=== PATIENT | female | born 1960 | race Caucasian/White ===

== ENCOUNTER → 2017-04-06 | Outpatient (REF) ==
[2012-01-08 10:19] VITALS: BP 136/91
[~2017-04-06] MED LIST: NO HOME MEDICATIONS
== END ==
LOC: LAB 13:58
DX: E83.52 Hypercalcemia (principal); E11.9 Type 2 diabetes mellitus without complications

== ENCOUNTER → 2017-04-20 | Outpatient (CLI) | payer BC ==
[2012-01-08 10:19] VITALS: BP 136/91
== END ==
LOC: RAD 14:41
DX: M54.2 Cervicalgia (principal)

== ENCOUNTER → 2017-04-20 | Outpatient (REF) ==
[2012-01-08 10:19] VITALS: BP 136/91
== END ==
LOC: LAB 14:40 → EDSTATUS 14:43
DX: Z01.419 Encounter for gynecological examination (general) (routine) without abnormal findings (principal); E11.9 Type 2 diabetes mellitus without complications; E78.2 Mixed hyperlipidemia; K21.9 Gastro-esophageal reflux disease without esophagitis

== ENCOUNTER → 2017-09-10 | Outpatient (CLI) | payer BC ==
[2012-01-08 10:19] VITALS: BP 136/91
== END ==
LOC: LAB 13:35
DX: E21.0 Primary hyperparathyroidism (principal)

== ENCOUNTER → 2018-03-13 | Outpatient (CLI) | payer BC ==
[2012-01-08 10:19] VITALS: BP 136/91
[2018-03-13 08:18] LABS: EOS # 0.3 (0.04-0.40); HEMATOCRIT 45.5 % (37.0-47.0); MEAN CELL VOLUME 89 fl (78-100); MEAN CORPUSCULAR HEMOGLOBIN 29 pg (27-31); MEAN CORPUSCULAR HGB CONC 33 g/dL (33-37); MEAN PLATELET VOLUME 9.2 fl (7.4-10.4); MONO # 0.5 (0.20-0.80); NEU # 6.1 (1.40-6.50); PLATELET COUNT 317 K/mm3 (130-400); RED CELL DISTRIBUTION WIDTH 14.4 % (11.5-14.5)
== END ==
LOC: LAB 07:57
PROVIDERS: Nurse Practitioner Family
DX: Z13.220 Encounter for screening for lipoid disorders (principal); E11.65 Type 2 diabetes mellitus with hyperglycemia; K21.9 Gastro-esophageal reflux disease without esophagitis

== ENCOUNTER → 2018-04-05 | Outpatient (CLI) | payer BC ==
[~2018-04-05] VITALS: Ht 160 cm; Wt 97.7 kg
[~2018-04-05] MED LIST changes: +DIABETA 5MG5 MG/TAB PO; +ESTRACE2 M1 PO; +GLUCOPHAGE PO; +LISINOPRIL10 MG PO; +OMEPRAZOLE D/R20 MG PO; +PIOGLITAZONE HC15 MG PO; +PRAVASTATIN SOD40 MG PO; +SERTRALINE HYD100 MG PO; +ZOLOFT25 M1 PO
[2018-04-05 09:50] VITALS: BP 117/78
== END ==
LOC: AMSURD 08:38
DX: M19.90 Unspecified osteoarthritis, unspecified site (principal)

== ENCOUNTER 2019-03-03 21:39 | Inpatient (IN) | payer SELFPAY ==
[~2019-03-03] VITALS: Ht 162.6 cm; Wt 90.8 kg
[~2019-03-03 21:39] MED LIST changes: -VIBRAMYCIN HYC100 MG PO
[2019-03-03 22:18] VITALS: BP 87/47
[2019-03-03 22:27] VITALS: BP 87/47
[2019-03-03 23:30] VITALS: BP 86/51
[2019-03-03 23:37] LABS: POTASSIUM 3.3 mmol/L (3.5-5.1)
[2019-03-03 23:38] LABS: CALCIUM 7.8 mg/dL (8.3-10.5)
[2019-03-04 03:50] VITALS: BP 92/60
[2019-03-04 06:31] VITALS: BP 107/70
[2019-03-04 06:48] LABS: HEMATOCRIT 39.6 % (37.0-47.0); HEMOGLOBIN 13.1 g/dL (12.5-16.0); MEAN CELL VOLUME 86 fl (78-100); MEAN CORPUSCULAR HEMOGLOBIN 29 pg (27-31); MEAN CORPUSCULAR HGB CONC 33 g/dL (33-37); MEAN PLATELET VOLUME 11.2 fl (7.4-10.4); PLATELET COUNT 72 K/mm3 (130-400); RED BLOOD COUNT 4.59 M/mm3 (4.10-5.30); RED CELL DISTRIBUTION WIDTH 13.5 % (11.5-14.5)
[2019-03-04 07:15] LABS: CALCIUM 7.8 mg/dL (8.3-10.5); POTASSIUM 3.5 mmol/L (3.5-5.1)
[2019-03-04 07:24] LABS: WHITE BLOOD COUNT 1.9 K/mm3 (4.8-10.8)
[2019-03-04 08:07] LABS: BAND 29 % (0-10); LYMPHOCYTE 18 % (20-51); NEUTROPHILS 40 % (42-75)
[2019-03-04 08:08] LABS: MONOCYTE 13 % (3-10)
[2019-03-04 11:14] VITALS: BP 95/61
[2019-03-04 12:11] LABS: TOTAL PROTEIN 5.4 g/dL (6.4-8.3)
[2019-03-04 12:13] LABS: TOTAL BILIRUBIN 0.7 mg/dL (0.2-1.2)
[2019-03-04 12:16] LABS: DIRECT BILIRUBIN 0.3 mg/dL (0.0-0.5)
[2019-03-04 14:44] VITALS: BP 92/57
[2019-03-04 18:19] VITALS: BP 123/76
[2019-03-04 22:20] VITALS: BP 134/80
[2019-03-05 02:43] VITALS: BP 99/59
[2019-03-05 06:40] VITALS: BP 102/60
[2019-03-05 09:02] LABS: POTASSIUM 3.5 mmol/L (3.5-5.1)
[2019-03-05 09:05] LABS: TOTAL PROTEIN 5.5 g/dL (6.4-8.3)
[2019-03-05 09:06] LABS: TOTAL BILIRUBIN 0.7 mg/dL (0.2-1.2)
[2019-03-05 10:04] LABS: HEMATOCRIT 38.2 % (37.0-47.0); HEMOGLOBIN 12.8 g/dL (12.5-16.0); MEAN CELL VOLUME 86 fl (78-100); MEAN CORPUSCULAR HEMOGLOBIN 29 pg (27-31); MEAN CORPUSCULAR HGB CONC 34 g/dL (33-37); MEAN PLATELET VOLUME 11.4 fl (7.4-10.4); PLATELET COUNT 68 K/mm3 (130-400); RED BLOOD COUNT 4.47 M/mm3 (4.10-5.30); RED CELL DISTRIBUTION WIDTH 13.4 % (11.5-14.5); WHITE BLOOD COUNT 3.1 K/mm3 (4.8-10.8)
[2019-03-05 11:17] VITALS: BP 110/72
[2019-03-05 11:32] LABS: LYMPHOCYTE 44 % (20-51); MONOCYTE 13 % (3-10); NEUTROPHILS 41 % (42-75)
[2019-03-05] MEDS ORDERED: VIBRAMYCIN HYC100 MG PO (13:54)
== END 2019-03-05 14:57 | disposition home or self-care (01) | DRG 813 ==
LOC: MED/SURG 21:39
PROVIDERS: Nurse Practitioner Primary Care; ADMIT Physician Assistant
DX: D69.6 Thrombocytopenia, unspecified (principal); D70.8 Other neutropenia; W57.XXXA Bitten or stung by nonvenomous insect and other nonvenomous arthropods, initial encounter; R74.0 Nonspecific elevation of levels of transaminase and lactic acid dehydrogenase [LDH]; R53.81 Other malaise; K21.9 Gastro-esophageal reflux disease without esophagitis; E78.5 Hyperlipidemia, unspecified; G40.909 Epilepsy, unspecified, not intractable, without status epilepticus; E11.65 Type 2 diabetes mellitus with hyperglycemia; E86.0 Dehydration; R82.4 Acetonuria
CPT/HCPCS: A4216; J0696; J1650; J1815; J7030; J7050

== ENCOUNTER → 2019-03-03 | Outpatient (CLI) | payer SELFPAY ==
[~2019-03-03] VITALS: Ht 160 cm; Wt 90.5 kg
[~2019-03-03] MED LIST changes: +VIBRAMYCIN HYC100 MG PO; +ZOLOFT 100MG100 MG PO
[2019-03-03 19:27] VITALS: BP 101/32
[2019-03-03 21:40] VITALS: BP 87/47
== END ==
LOC: AMSURD 19:19
DX: R80.9 Proteinuria, unspecified (principal); E86.0 Dehydration
CPT/HCPCS: J7030

== ENCOUNTER → 2019-03-03 | Outpatient (CLI) | payer SELFPAY ==
[2018-04-05 09:50] VITALS: BP 117/78
[2019-03-03 16:12] LABS: HEMATOCRIT 46.1 % (37.0-47.0); HEMOGLOBIN 15.4 g/dL (12.5-16.0); MEAN CELL VOLUME 85 fl (78-100); MEAN CORPUSCULAR HEMOGLOBIN 28 pg (27-31); MEAN CORPUSCULAR HGB CONC 33 g/dL (33-37); PLATELET COUNT 81 K/mm3 (130-400); RED BLOOD COUNT 5.43 M/mm3 (4.10-5.30); RED CELL DISTRIBUTION WIDTH 13.6 % (11.5-14.5); WHITE BLOOD COUNT 2.3 K/mm3 (4.8-10.8)
[2019-03-03 16:25] LABS: POTASSIUM 3.6 mmol/L (3.5-5.1)
[2019-03-03 16:26] LABS: CALCIUM 9.4 mg/dL (8.3-10.5)
[2019-03-03 16:27] LABS: TOTAL PROTEIN 7.3 g/dL (6.4-8.3)
[2019-03-03 16:29] LABS: TOTAL BILIRUBIN 1.4 mg/dL (0.2-1.2)
[2019-03-03 17:37] LABS: URINE APPEARANCE CLOUDY; URINE COLOR YELLOW; URINE KETONE 2+ (NEGATIVE); URINE PROTEIN(semi-quant) 2+ mg/dL (NEGATIVE)
[2019-03-03 17:39] LABS: URINE BILIRUBIN NEGATIVE (NEGATIVE); URINE BLOOD TRACE (NEGATIVE); URINE NITRATE NEGATIVE (NEGATIVE); URINE UROBILINOGEN 1 mg/dL (NORMAL)
[2019-03-03 17:40] LABS: URINE LEUKOCYTE ESTERASE NEGATIVE (NEGATIVE)
[2019-03-03 18:06] LABS: BAND 12 % (0-10); LYMPHOCYTE 24 % (20-51); MONOCYTE 5 % (3-10); NEUTROPHILS 59 % (42-75)
== END ==
LOC: LAB 15:53
PROVIDERS: Physician Assistant
DX: M62.81 Muscle weakness (generalized) (principal); R53.81 Other malaise; R11.10 Vomiting, unspecified

== ENCOUNTER → 2019-03-21 | Outpatient (CLI) | payer SELFPAY ==
[2019-03-05 11:17] VITALS: BP 110/72
[~2019-03-21] MED LIST changes: +VIBRAMYCIN HYC100 MG PO
[2019-03-21 10:35] LABS: BASO # 0.1 (0.02-0.10); EOS # 0.1 (0.04-0.40); EOS % 1.3 % (1.0-5.0); HEMATOCRIT 44.1 % (37.0-47.0); HEMOGLOBIN 14.1 g/dL (12.5-16.0); MEAN CELL VOLUME 89 fl (78-100); MEAN CORPUSCULAR HEMOGLOBIN 28 pg (27-31); MEAN CORPUSCULAR HGB CONC 32 g/dL (33-37); MEAN PLATELET VOLUME 8.9 fl (7.4-10.4); MONO # 0.6 (0.20-0.80); NEU # 5.2 (1.40-6.50); PLATELET COUNT 382 K/mm3 (130-400); RED BLOOD COUNT 4.98 M/mm3 (4.10-5.30); RED CELL DISTRIBUTION WIDTH 13.9 % (11.5-14.5)
[2019-03-21 10:46] LABS: ALBUMIN 4.1 g/dL (3.5-5.0); POTASSIUM 3.9 mmol/L (3.5-5.1)
[2019-03-21 10:48] LABS: CALCIUM 9.6 mg/dL (8.3-10.5)
[2019-03-21 10:49] LABS: TOTAL PROTEIN 7.2 g/dL (6.4-8.3)
[2019-03-21 10:51] LABS: TOTAL BILIRUBIN 0.4 mg/dL (0.2-1.2)
== END ==
LOC: LAB 10:18
PROVIDERS: Family Medicine
DX: E11.9 Type 2 diabetes mellitus without complications (principal); B88.2 Other arthropod infestations

== ENCOUNTER → 2019-07-25 | Outpatient (CLI) | payer BC | LOC: LAB 11:28 | DX: E11.9 Type 2 diabetes mellitus without complications (principal); L73.2 Hidradenitis suppurativa ==

== ENCOUNTER → 2019-10-21 | Outpatient (CLI) | payer BC | LOC: LAB 09:44 | DX: E11.9 Type 2 diabetes mellitus without complications (principal); E03.9 Hypothyroidism, unspecified ==

== ENCOUNTER 2020-01-05 18:29 | Emergency (ER) | payer BC ==
[2020-01-05] MEDS ORDERED: TRAMADOL 50 MG TAB PO (18:43)
[2020-01-05] MEDS ORDERED: VALIUM 5MG T5 MG/TAB PO (18:43)
[2020-01-05] MEDS ORDERED: SUNMARK OMEPRAZ20 MG PO (18:43)
[2020-01-05] MEDS ORDERED: CEPHALEXIN500 M1 PO (20:38)
[2020-01-05 20:46] VITALS: BP 144/81
== END 2020-01-05 20:46 | disposition home or self-care (01) ==
LOC: ED 18:29
DX: S61.411A Laceration without foreign body of right hand, initial encounter (principal); S10.93XA Contusion of unspecified part of neck, initial encounter; S80.811A Abrasion, right lower leg, initial encounter; S00.81XA Abrasion of other part of head, initial encounter; S80.812A Abrasion, left lower leg, initial encounter; E11.9 Type 2 diabetes mellitus without complications; I10 Essential (primary) hypertension; E03.9 Hypothyroidism, unspecified; E78.5 Hyperlipidemia, unspecified; K21.9 Gastro-esophageal reflux disease without esophagitis; Z23 Encounter for immunization; Z79.84 Long term (current) use of oral hypoglycemic drugs; F17.210 Nicotine dependence, cigarettes, uncomplicated; W01.0XXA Fall on same level from slipping, tripping and stumbling without subsequent striking against object, initial encounter; W26.8XXA Contact with other sharp object(s), not elsewhere classified, initial encounter
CPT/HCPCS: 90715; L0172

== ENCOUNTER → 2020-05-24 | Outpatient (CLI) | payer SELFPAY ==
[~2020-05-24] MED LIST changes: +CEPHALEXIN500 M1 PO; +SUNMARK OMEPRAZ20 MG PO; +TRAMADOL 50 MG TAB PO; +VALIUM 5MG T5 MG/TAB PO
[2020-05-24 09:21] LABS: EOS # 0.3 (0.04-0.40); EOS % 2.4 % (1.0-5.0); HEMATOCRIT 45.2 % (37.0-47.0); HEMOGLOBIN 14.8 g/dL (12.5-16.0); LYMPH# 2.8 (1.50-4.00); MEAN CELL VOLUME 89 fl (78-100); MEAN CORPUSCULAR HEMOGLOBIN 29 pg (27-31); MEAN CORPUSCULAR HGB CONC 33 g/dL (33-37); MEAN PLATELET VOLUME 9.2 fl (7.4-10.4); MONO # 0.5 (0.20-0.80); NEU # 6.7 (1.40-6.50); PLATELET COUNT 285 K/mm3 (130-400); RED BLOOD COUNT 5.09 M/mm3 (4.10-5.30); RED CELL DISTRIBUTION WIDTH 13.8 % (11.5-14.5); WHITE BLOOD COUNT 10.3 K/mm3 (4.8-10.8)
[2020-05-24 09:26] LABS: ALBUMIN 4.2 g/dL (3.5-5.0); POTASSIUM 4.2 mmol/L (3.5-5.1)
[2020-05-24 09:27] LABS: CALCIUM 9.6 mg/dL (8.3-10.5)
[2020-05-24 09:29] LABS: TOTAL PROTEIN 7.1 g/dL (6.4-8.3)
[2020-05-24 09:30] LABS: TOTAL BILIRUBIN 0.3 mg/dL (0.2-1.2)
== END ==
LOC: LAB 09:05
PROVIDERS: Physician Assistant
DX: E11.9 Type 2 diabetes mellitus without complications (principal); E78.5 Hyperlipidemia, unspecified; K21.9 Gastro-esophageal reflux disease without esophagitis

== ENCOUNTER → 2020-12-17 | Outpatient (CLI) | payer OTHER | LOC: LAB 16:00 | DX: E11.9 Type 2 diabetes mellitus without complications (principal) ==

== ENCOUNTER → 2021-01-07 | Day surgery (SDC) | payer OTHER | END | disposition home or self-care (01) | LOC: MSO 07:58 | DX: D3A.8 Other benign neuroendocrine tumors (principal); K21.9 Gastro-esophageal reflux disease without esophagitis; I10 Essential (primary) hypertension; E11.40 Type 2 diabetes mellitus with diabetic neuropathy, unspecified; G47.33 Obstructive sleep apnea (adult) (pediatric); J44.9 Chronic obstructive pulmonary disease, unspecified; F17.210 Nicotine dependence, cigarettes, uncomplicated; F32.9 Major depressive disorder, single episode, unspecified; F41.9 Anxiety disorder, unspecified; E78.2 Mixed hyperlipidemia; M85.80 Other specified disorders of bone density and structure, unspecified site; K58.0 Irritable bowel syndrome with diarrhea; G40.909 Epilepsy, unspecified, not intractable, without status epilepticus; E66.01 Morbid (severe) obesity due to excess calories; Z68.37 Body mass index [BMI] 37.0-37.9, adult; T38.3X6A Underdosing of insulin and oral hypoglycemic [antidiabetic] drugs, initial encounter; Z91.138 Patient's unintentional underdosing of medication regimen for other reason; Z79.4 Long term (current) use of insulin; Z79.899 Other long term (current) drug therapy | CPT/HCPCS: 00731; J2704; J7120 ==

== ENCOUNTER → 2021-01-16 | Outpatient (CLI) | payer SELFPAY | LOC: LAB 09:35 | PROVIDERS: Surgery | DX: Z01.812 Encounter for preprocedural laboratory examination (principal) ==

== ENCOUNTER → 2021-01-18 | Outpatient (CLI) | payer OTHER | LOC: RAD 08:30 | DX: K21.9 Gastro-esophageal reflux disease without esophagitis (principal); D13.2 Benign neoplasm of duodenum; Z90.710 Acquired absence of both cervix and uterus | CPT/HCPCS: Q9967 ==

== ENCOUNTER → 2021-02-26 | Outpatient (CLI) | payer SELFPAY | LOC: LAB 09:50 | DX: C7A.8 Other malignant neuroendocrine tumors (principal) ==

== ENCOUNTER → 2021-03-20 | Outpatient (CLI) | payer SELFPAY | LOC: LAB 12:36 | DX: Z20.822 Contact with and (suspected) exposure to COVID-19 (principal) ==

== ENCOUNTER → 2021-03-28 | Outpatient (CLI) | payer SELFPAY | LOC: RAD 13:40 | DX: D3A.8 Other benign neuroendocrine tumors (principal); T18.9XXA Foreign body of alimentary tract, part unspecified, initial encounter ==

== ENCOUNTER → 2021-04-04 | Outpatient (CLI) | payer SELFPAY | LOC: RAD 10:18 | DX: R10.84 Generalized abdominal pain (principal) ==

== ENCOUNTER → 2021-08-28 | Outpatient (CLI) | payer MEDICAID | LOC: MAMMO 08:30 | DX: Z12.31 Encounter for screening mammogram for malignant neoplasm of breast (principal) ==

== ENCOUNTER → 2021-08-29 | Outpatient (CLI) | payer MEDICAID | LOC: RAD 17:14 | DX: M67.812 Other specified disorders of synovium, left shoulder (principal) ==

== ENCOUNTER 2021-10-23 13:56 | Outpatient (RCR) | payer MEDICAID | END 2021-11-11 | disposition home or self-care (01) | LOC: PT | DX: M25.512 Pain in left shoulder (principal) ==

== ENCOUNTER → 2021-11-19 | Outpatient (CLI) | payer MEDICAID ==
[2021-11-19 12:20] LABS: ALBUMIN 4.4 g/dL (3.4-4.8); POTASSIUM 4.3 mmol/L (3.5-5.1)
[2021-11-19 12:21] LABS: CALCIUM 9.9 mg/dL (8.3-10.5)
[2021-11-19 12:22] LABS: TOTAL PROTEIN 7.7 g/dL (6.2-8.1)
[2021-11-19 12:24] LABS: TOTAL BILIRUBIN 0.6 mg/dL (0.2-1.2)
== END ==
LOC: LAB 11:56
PROVIDERS: Family Medicine
DX: F31.9 Bipolar disorder, unspecified (principal); G89.29 Other chronic pain; K21.9 Gastro-esophageal reflux disease without esophagitis; F41.1 Generalized anxiety disorder; K58.9 Irritable bowel syndrome, unspecified; M47.896 Other spondylosis, lumbar region; E78.2 Mixed hyperlipidemia; E66.01 Morbid (severe) obesity due to excess calories; D3A.8 Other benign neuroendocrine tumors; G47.33 Obstructive sleep apnea (adult) (pediatric); M85.80 Other specified disorders of bone density and structure, unspecified site; M25.512 Pain in left shoulder; D35.1 Benign neoplasm of parathyroid gland; G40.909 Epilepsy, unspecified, not intractable, without status epilepticus; M53.3 Sacrococcygeal disorders, not elsewhere classified; E11.22 Type 2 diabetes mellitus with diabetic chronic kidney disease; N18.9 Chronic kidney disease, unspecified; Z72.0 Tobacco use

== ENCOUNTER → 2022-02-25 | Outpatient (CLI) | payer MEDICAID | LOC: LAB 13:00 | DX: Z20.822 Contact with and (suspected) exposure to COVID-19 (principal) ==

== ENCOUNTER → 2022-04-23 | Outpatient (CLI) | payer MEDICAID | LOC: RAD 11:05 | DX: R05.3 Chronic cough (principal) ==

== ENCOUNTER → 2022-05-05 | Outpatient (CLI) | payer MEDICAID ==
[2022-05-05 11:20] LABS: BASO # 0.04 K/mm3 (0.02-0.10); EOS # 0.22 K/mm3 (0.04-0.40); EOS % 2.3 % (1.0-5.0); HEMATOCRIT 45.8 % (37.0-47.0); LYMPH# 2.52 K/mm3 (1.50-4.00); MEAN CELL VOLUME 88 fl (78-100); MEAN CORPUSCULAR HEMOGLOBIN 29 pg (27-31); MEAN CORPUSCULAR HGB CONC 33 g/dL (33-37); MEAN PLATELET VOLUME 9.1 fl (7.4-10.4); MONO # 0.41 K/mm3 (0.20-0.80); NEU # 6.42 K/mm3 (1.40-6.50); PLATELET COUNT 211 K/mm3 (130-400); RED BLOOD COUNT 5.19 M/mm3 (4.10-5.30); RED CELL DISTRIBUTION WIDTH 13.3 % (11.5-14.5); WHITE BLOOD COUNT 9.7 K/mm3 (4.8-10.8)
[2022-05-05 11:23] LABS: ALBUMIN 4.1 g/dL (3.4-4.8); POTASSIUM 4.4 mmol/L (3.5-5.1)
[2022-05-05 11:24] LABS: CALCIUM 9.2 mg/dL (8.3-10.5)
[2022-05-05 11:25] LABS: TOTAL PROTEIN 6.7 g/dL (6.2-8.1)
[2022-05-05 11:27] LABS: TOTAL BILIRUBIN 0.5 mg/dL (0.2-1.2)
== END ==
LOC: LAB 10:53 → RAD 10:53
PROVIDERS: Family Medicine
DX: J20.9 Acute bronchitis, unspecified (principal); F31.9 Bipolar disorder, unspecified; G89.29 Other chronic pain; K21.9 Gastro-esophageal reflux disease without esophagitis; F41.1 Generalized anxiety disorder; I10 Essential (primary) hypertension; K58.9 Irritable bowel syndrome, unspecified; M47.896 Other spondylosis, lumbar region; E78.2 Mixed hyperlipidemia; E66.01 Morbid (severe) obesity due to excess calories; D3A.8 Other benign neuroendocrine tumors; G47.33 Obstructive sleep apnea (adult) (pediatric); M85.80 Other specified disorders of bone density and structure, unspecified site; D35.1 Benign neoplasm of parathyroid gland; K76.0 Fatty (change of) liver, not elsewhere classified; E11.9 Type 2 diabetes mellitus without complications; Z72.0 Tobacco use
CPT/HCPCS: Q9967

== ENCOUNTER 2023-05-19 05:22 | Emergency (ER) | payer MEDICARE, MEDICAID ==
[~2023-05-19] VITALS: Ht 162.6 cm; Wt 93.4 kg
[2023-05-19] MEDS ORDERED: PANTOPRAZOLE SO40 MG PO (05:56)
[2023-05-19] MEDS ORDERED: ATORVASTATIN CA40 MG PO (05:57)
[2023-05-19] MEDS ORDERED: DESVENLAFAXINE100 M3 PO (05:57)
[2023-05-19] MEDS ORDERED: BUSPIRONE5 MG PO (05:57)
[2023-05-19] MEDS ORDERED: MOUNJARO10 MG/0.5 SQ (05:58)
[2023-05-19] MEDS ORDERED: INSULIN LI100 UNIT/2 SQ (05:59)
[2023-05-19] MEDS ORDERED: NEURONTIN300 MG/CAP (05:59)
[2023-05-19 06:33] LABS: BASO # 0.06 K/mm3 (0.02-0.10); EOS # 0.22 K/mm3 (0.04-0.40); EOS % 1.8 % (1.0-5.0); HEMATOCRIT 42.7 % (37.0-47.0); MEAN CELL VOLUME 92 fl (78-100); MEAN CORPUSCULAR HEMOGLOBIN 30 pg (27-31); MEAN CORPUSCULAR HGB CONC 33 g/dL (33-37); MEAN PLATELET VOLUME 9.4 fl (7.4-10.4); MONO # 0.51 K/mm3 (0.20-0.80); PLATELET COUNT 272 K/mm3 (130-400); RED BLOOD COUNT 4.63 M/mm3 (4.10-5.30); RED CELL DISTRIBUTION WIDTH 13.1 % (11.5-14.5); WHITE BLOOD COUNT 12.4 K/mm3 (4.8-10.8)
[2023-05-19 06:44] LABS: ALBUMIN 4.1 g/dL (3.4-4.8)
[2023-05-19 06:45] LABS: POTASSIUM 4.2 mmol/L (3.5-5.1); SODIUM 138 mmol/L (136-145)
[2023-05-19 06:46] LABS: CALCIUM 9.9 mg/dL (8.3-10.5)
[2023-05-19 06:47] LABS: GLUCOSE 215 mg/dL (65-105); TOTAL PROTEIN 6.9 g/dL (6.2-8.1)
[2023-05-19 06:48] LABS: CARBON DIOXIDE 20 mmol/L (23-31)
[2023-05-19 06:49] LABS: TOTAL BILIRUBIN 0.9 mg/dL (0.2-1.2)
[2023-05-19 06:52] LABS: AST-SGOT 34 U/L (5-34)
[2023-05-19 06:53] LABS: ALT/SGPT 35 U/L (0-55)
[2023-05-19 07:01] LABS: TROPONIN-I < 0.030 ng/mL (<0.030)
[2023-05-19 08:42] VITALS: BP 128/79
== END 2023-05-19 08:46 | disposition home or self-care (01) ==
LOC: ED 05:22
PROVIDERS: Nurse Practitioner
DX: S01.412A Laceration without foreign body of left cheek and temporomandibular area, initial encounter (principal); S05.12XA Contusion of eyeball and orbital tissues, left eye, initial encounter; M25.512 Pain in left shoulder; M54.9 Dorsalgia, unspecified; M54.2 Cervicalgia; E66.9 Obesity, unspecified; F17.200 Nicotine dependence, unspecified, uncomplicated; W18.2XXA Fall in (into) shower or empty bathtub, initial encounter; W22.8XXA Striking against or struck by other objects, initial encounter; Y93.01 Activity, walking, marching and hiking; Y92.091 Bathroom in other non-institutional residence as the place of occurrence of the external cause
CPT/HCPCS: J3010